=== PATIENT | male | born 1980 | race Caucasian/White ===

== ENCOUNTER 2017-08-14 08:49 | Observation (INO) | payer MEDICAID, SELFPAY ==
[2017-08-14] VITALS (12 sets, daily range): BP systolic 115–136; BP diastolic 64–94; PULSE 54–105; RESP 16–22; TEMP 36.3–36.6; O2SAT 97–100; BMI 22.8; BMI 22.5; BMI 22.6
--- NOTE | 2017-08-14 09:00 | CT_ITS ---
STUDY: CT ABDOMEN AND PELVIS WITHOUT CONTRAST REASON FOR EXAM: Male, 37 years old. Right upper quadrant pain RADIATION DOSAGE (If Supplied By Facility): CTDIvol = ( 6.58 ) mGy, DLP = ( 328.80 ) mGycm TECHNIQUE: Transaxial images were obtained from the dome of the diaphragm to the symphysis pubis without oral contrast, and without intravenous contrast. Sagittal and coronal images were reconstructed. Individualized dose optimization techniques were used for this CT. COMPARISON: None. FINDINGS: The visualized lung bases are unremarkable. The visualized portions of the heart are within normal limits. Normal liver. There is a solitary gallstone. There is thickening of the gallbladder zhao may represent cholecystitis Normal spleen. Normal pancreas. Normal bilateral adrenal glands. Normal right kidney. Normal left kidney. Normal visualized stomach. Normal small intestine. Normal colon. The appendix is visualized and appears normal. Normal abdominal aorta. Normal inferior vena cava. Normal retroperitoneum. Normal urinary bladder. Normal abdominal wall. Normal osseous structures. CT/Abdomen/Pelvis without Cont IMPRESSION: Cholelithiasis and possible acute cholecystitis. Electronically Signed: Geraldine Meade MD at 9:48 EDT Tel , Service support ,
--- NOTE | 2017-08-14 09:06 | ED.VISSUMM ---
- ER Visit Summary Date of Service: 08/14/17 Chief Complaint: Abdominal pain History of Present Illness: The patient is a 37 M with right upper quadrant abdominal pain. The pain started yesterday around 5 PM. It radiates over his entire right abdomen. Nothing seemed to bring this on or make it worse. Nothing seems to make it better. The pain does radiate to his right upper back. He is currently on disability after a shoulder surgery on the right with subsequent nerve damage. He has chronic pain in the right upper back, and this abdominal pain is making his chronic pain worse. He had some nausea and some dysuria, but no other real symptoms. Reports a history of kidney stones. Denies discharge or bleeding. Denies any history of gallbladder, liver, or pancreas disease. Denies any history of abdominal surgeries. He does smoke cigarettes and use marijuana. He takes oxycodone for chronic pain, and is in pain management. Physical Examination: Vital signs unremarkable. Afebrile. Patient appears very uncomfortable and is mildly agitated. Pacing. Abdomen is diffusely tender, more so on the right upper quadrant. No guarding or rebound. Patient has chronic skin changes to his right upper back, but otherwise is back is unremarkable. Test Results: We will check urinalysis, labs, and CT. Emergency Department Course and Treatment: He was treated with fluids, morphine, and Zofran while awaiting results. White count 13.2. Potassium 2.9. Hepatic panel and lipase normal. CT shows gallstones with suspected acute cholecystitis. Urinalysis pending. Given the patient's symptoms, CT findings, and elevated white count, I am concerned for cholecystitis. I spoke with the surgeon on-call, Dr. Barbosa. The patient was treated with Zosyn while awaiting consult. He will receive potassium after antibiotics. Dr. Barbosa saw the patient. He will be admitted. Plan is for surgery tomorrow. Treatment Plan: As above Disposition: Admission Impression: 1. Acute cholecystitis 2. Hypokalemia This note was generated with [employer] software. It may contain incorrect words, spelling, and punctuation that were not noted in review of the chart prior to signing ED Disposition - Plan for ED Patient: Chief Complaint: Flank Pain Referrals: [facility] Doctor,Out of [Primary Care Provider] -
--- NOTE | 2017-08-14 09:09 | ED.DCSUM_ITS ---
- ER Visit Summary Date of Service: 08/14/17 Chief Complaint: Abdominal pain History of Present Illness: The patient is a 37 M with right upper quadrant abdominal pain. The pain started yesterday around 5 PM. It radiates over his entire right abdomen. Nothing seemed to bring this on or make it worse. Nothing seems to make it better. The pain does radiate to his right upper back. He is currently on disability after a shoulder surgery on the right with subsequent nerve damage. He has chronic pain in the right upper back, and this abdominal pain is making his chronic pain worse. He had some nausea and some dysuria, but no other real symptoms. Reports a history of kidney stones. Denies discharge or bleeding. Denies any history of gallbladder, liver, or pancreas disease. Denies any history of abdominal surgeries. He does smoke cigarettes and use marijuana. He takes oxycodone for chronic pain, and is in pain management. Physical Examination: Vital signs unremarkable. Afebrile. Patient appears very uncomfortable and is mildly agitated. Pacing. Abdomen is diffusely tender , more so on the right upper quadrant. No guarding or rebound. Patient has chronic skin changes to his right upper back, but otherwise is back is unremarkable. Test Results: We will check urinalysis, labs, and CT. Emergency Department Course and Treatment: He was treated with fluids, morphine , and Zofran while awaiting results. White count 13.2. Potassium 2.9. Hepatic panel and lipase normal. CT shows gallstones with suspected acute cholecystitis. Urinalysis pending. Given the patient's symptoms, CT findings, and elevated white count, I am concerned for cholecystitis. I spoke with the surgeon on-call, Dr. Barbosa. The patient was treated with Zosyn while awaiting consult. He will receive potassium after antibiotics. Dr. Barbosa saw the patient. He will be admitted. Plan is for surgery tomorrow. Treatment Plan: As above Disposition: Admission Impression: 1. Acute cholecystitis 2. Hypokalemia This note was generated with [employer] software. It may contain incorrect words, spelling, and punctuation that were not noted in review of the chart prior to signing ED Disposition - Plan for ED Patient: Chief Complaint: Flank Pain Referrals: [facility] Doctor,Out of [Primary Care Provider] -
[2017-08-14] MEDS: Ondansetron 4 MG/2 ML Vial IV (09:17)
[2017-08-14] MEDS: 0.9% Normal Saline 1,000 ML 1000 ML IV (09:17)
[2017-08-14] MEDS: Morphine 4 MG/ML Syringe IV ×2 (09:17→16:16)
[2017-08-14 09:23] LABS: Absolute Lymphocyte Count 2.41 X10^3/ul (0.83-4.51); Absolute Neutrophil Count 9.1 X10^3/uL (2.0-7.7); Basophil% 0.8 % (0-1); Eosinophil# 0.38 X10^3/uL; Eosinophils% 2.9 % (0-5); Hematocrit 42.6 % (40-54); Hemoglobin 15.2 g/dl (13.0-16.5); Lymphocyte # 2.41 X10^3/ul (4.0); Lymphocyte % 18.3 % (19-41); Mean Corp Hgb Conc 35.7 g/gl (32-36); Mean Corpuscular Hgb 32.6 pg (27.0-32.0); Mean Corpuscular Volume 91.4 fL (80-94); Mean Platelet Vol. 10.1 fl (6.2-12.0); Monocyte# 1.16 X10^3/uL; Monocyte% 8.8 % (0-10); Neutrophil # 9.08 X10^3/uL (2.7-7.7); POSITIVE COUNT NO; POSITIVE DIFFERENTIAL NO; POSITIVE MORPHOLOGY NO; Platelet Count 349 K/mm3 (150-450); RBC Distribution Width CV 12.7 % (11.6-14.6); RBC Distribution Width SD 41.8 fl (35.1-43.9); Red Blood Count 4.66 M/mm3 (4.6-6.2); White Blood Count 13.2 K/mm3 (4.4-11.0)
[2017-08-14 09:40] LABS: ALB/GLOB Ratio 1.3 RATIO (0.9-2.4); AST(SGOT) 15 U/L (15-37); Alanine Aminotransfer ALT/SGPT 24 U/L (16-61); Albumin, Serum 4.4 g/dL (3.2-5.0); Alkaline Phosphatase 47 U/L (45-117); Anion Gap 9 (5-15); BUN 8 mg/dL (7-18); BUN/Creat Ratio 8.5 RATIO (10-20); Calcium,Total 9.1 mg/dL (8.5-10.1); Chloride 107 mmol/L (98-107); Creatinine, Serum 0.95 mg/dL (0.70-1.30); EST Glomerular Filtration Rate 95 mL/min (>60); Est Glom Filt Rate - Afr Amer 115 mL/min (>60); Estimated Creatinine Clearance 102.46 ml/min; Globulin 3.3 g/dL (2.2-4.2); Glucose 105 mg/dL (74-106); Lipase 118 U/L (73-393); Potassium 2.9 mmol/L (3.5-5.1); Protein, Total 7.7 g/dL (6.4-8.2); Sodium Level 141 mmol/L (136-145)
[2017-08-14 10:10] LABS: Mucous, Urine 0 SEEN /hpf (<or=2+); Squamous Epithelial Cells - UA 0 SEEN /hpf (0-5); White Blood Cells 0 SEEN /hpf (0-5)
[2017-08-14] MEDS: morphine 8 MG/ML Syringe IV (10:10)
[2017-08-14 10:12] LABS: Color, Urine Yellow (Yellow); Glucose, Dipstick Normal (Normal); Ketone-Dipstick Negative (Negative); Leukocyte Esterase-Dipstick Negative /ul (Negative); Nitrite-Dipstick Negative (Negative); Occult Blood-Urine 25 /ul (Negative); Protein-Dipstick Negative (Negative); Specific Gravity, Urine 1.015 (1.002-1.030); Urine Bilirubin Dipstick Negative (Negative); Urine Clarity Sl. Cloudy (Clear); Urine Urobilinogen Normal (Normal)
[2017-08-14 10:18] LABS: Amorphous Sediment 1+; Bacteria RARE /hpf (None Seen); Red Blood Cells-Urine 0-5 SEEN /hpf (0-5)
--- NOTE | 2017-08-14 10:24 | NURSING ---
MED SURG OBS CHOLECYSTITIS, CHOLELITHIASIS POLO
--- NOTE | 2017-08-14 10:28 | HP.PCM_ITS ---
History and Physical Date of Admission: 08/14/17 Chief Complaint: abdominal pain History of Present Illness: 37 y/o WM presents with sudden onset of abdominal pain since 5pm yesterday. Has had pain all night long Essentially generalized abdominal pain but with palpation, mostly centered in the right upper quadrant and epigastric area. CT scan was obtained which revealed cholelithiasis and thickened gallbladder wall. Patient has noted intermittant twinges of discomfort in the area for several months. Denies biliary obstructive symptoms. Past Medical History: chronic right shoulder pain on narcotics for the past 2 months Past Surgical History: Right shoulder surgery Past Injuries: denies head injuries, bilateral wrist fractures Medications: naproxen gabapentin oxycodone or hydrocodone Allergies: Has no known drug allergies Social history: TOB use 1ppd for 10 y ETOH use denies Denies IV drug use , lives with Review of Systems: General - denies fevers, not hungry Cardiovascular denies chest pain, denies history of heart attack Pulmonary had asthma in use but hasn't required inhaler for long time, denies shortness of breath, denies coughing up blood Gastrointestinal as per HPI, denies blood in stools Neurological denies numbness/weakness of extremities, denies seizures Genitourinary denies burning with urination, denies blood in urine Hematological denies spontaneous/prolonged bleeding Skin denies open non healing wounds Musculoskeletal has chronic right shoulder pain after surgery had nerve damage Endocrine denies diabetes Psychological denies hallucinations Physical examination: Vital signs Temp 98F RR 22 HR 102 BP 134/87 General WD/WN WM in no apparent distress, alert and oriented, not septic appearing HEENT Normocephalic. EOM intact with sclera clear and no icterus noted. Neck is supple with no jugular venous distention noted. Trachea is midline. Lungs clear to auscultation, normal breath sounds in all lung carey. No rales/rhonchi/wheezing noted. No labored breathing noted, such as retractions.. Heart normal S1 and S2 auscultated. No rubs/clicks/murmurs noted. Abdomen soft, but tender to palpation in the right upper quadrant and epigastrium with Santo's sign, also generalized abdominal tenderness, hypoactive bowel sounds Extremities no calf tenderness noted. No pitting edema noted. Genitourinary/Rectal deferred Skin normal skin integrity. Neurological gait normal, no focal deficits Psychological normal affect, patient is calm and appropriate Labs - WBC 13.2K, Hct 42.6, Plt 349K Impression: cholecystitis, cholelithiasis Discussion/Plan: I have discussed the above with the patient and his who is present with him. I have offered the patient the procedure of laparoscopic cholecystectomy, possible cholangiograms I have explained the procedure to them. I have counseled the patient as to the risks of the procedure, including but not limited to: infection, bleeding, injury to any blood vessels/nerves, scar tissue, injury to any intrabdominal organs, injury to kidney/ureters, injury to bowel/bladder, injury to the common bile duct/biliary tree, bile leakage, intraabdominal abscess/bleeding, hernias at incisional sites, wound infections, possible open procedure, complications of anesthesia, postoperative pneumonia/ cardiac problems/blood clots etc. the patient understands. The patient wishes to proceed. I have answered all questions to the patient?s satisfaction and the patient has no further questions.
--- NOTE | 2017-08-14 10:32 | NURSING ---
PATIENT GOING TO SURGERY PER DR POLO. 320 AFTER
--- NOTE | 2017-08-14 10:54 | NURSING ---
gave report to Uyen CROWELL in surgery. pt is prepped and ready to go down. pt was transported to surgery at 1053.
--- NOTE | 2017-08-14 11:30 | GALL_PTH ---
PATIENT: KATHLEEN DC LOC: MS3 U#:[id number] AGE/SX: 37/M ROOM: NC320 RE08/14/[address]: Dr. Cortney Barbosa MD : 1980 BED: 1 DIS: 08/14/2017 SPEC #: [id number] RECD: 08/17/17 14:31 STATUS: TADEO RETerri #: [id number] LUISA: 08/14/17 11:[address]: Cortney Barbosa DEPT: SURGICAL PATHOLOGY RECD BY: Kyle Prince ENTERED: 08/17/17 04:54 SP TYPE: IVANA LINDSEY DR: Out of [facility] Doctor Tissues: Gallbladder, NOS Procedures: Surgery Specimen Level III HEADER OPERATION: Laparoscopic cholecystectomy PRE-OP DIAGNOSIS: Cholecystitis TISSUE SUBMITTED: Gallbladder MICROSCOPIC DIAGNOSIS Gallbladder: Acute and chronic ulcerated cholecystitis and cholelithiasis. Reactive epithelial changes. SJ:ajay 08/17/17 MICROSCOPIC DESCRIPTION Slides are reviewed. GROSS DESCRIPTION Received is one container labeled with the patient's name and designated gallbladder. The specimen consists of a gallbladder in two pieces. The distal portion including fundus measures 7 cm in length and 2.5 cm in diameter. The serosal surface is congested. The proximal portion including cystic duct also and impacted stone measures 2 x 2 x 1.5 cm. A focal area of defect is also noted in the distal portion of the gallbladder. The stone in the proximal portion is yellowish-mulberry type and measures 1.5 x 1.5 x 1 cm. The mucosa is congested. The gallbladder also contains a small amount of rea-yellowish sludge-like material. The mucosa is congested and ulcerated. The gallbladder wall measures up to 0.3 cm in thickness. Professor Of Biological Sciences sections from the gallbladder and the cystic duct are submitted in one cassette. / ELISSA:ajay 08/14/17 TC:2 CPT: 16956
--- NOTE | 2017-08-14 11:58 | PCM.IMDPSTOP ---
Immediate Post-Op Note Date of Procedure: 08/14/17 Primary Surgeon/Physician: Cortney Barbosa communication studies professor: Shanita Quesada Pre-Operative Diagnosis: cholelithiasis, cholecystitis Post-Operative Diagnosis: cholecystitis with obstruction, cholelithiasis Surgery/Procedure Performed:: laparoscopic cholecystectomy Description of Surgical Findings:: wall thickening, cholecystitis - edematous wall, one large stone Estimated Blood Loss: < 20 ml Specimen's removed: gallbladder and contents Type of Anesthesia:: General ASA Class: ASA2 Mod Systematic Disease - Admit VTE Documentation VTE Present on Admission: Yes VTE Mechan Device Prophylaxis: SCD's
[2017-08-14] MEDS: Bupiv/Epi 0.5% Mpf 30 ML Vial (12:13)
--- NOTE | 2017-08-14 13:32 | PCM.OPRPT ---
Report of Operation Date of Procedure: 08/14/17 Pre-Operative Diagnosis: cholelithiasis, cholecystitis Post-Operative Diagnosis: cholecystitis with obstruction, cholelithiasis Surgery/Procedure Performed:: laparoscopic cholecystectomy Description of Surgical Findings:: wall thickening, cholecystitis - edematous wall, one large stone truck and transport mechanic: Shanita Quesada Type of Anesthesia:: General Anesthesiologist: Wily Aranda Specimen's removed: gallbladder and contents Estimated Blood Loss (mL): < 20 ml Fluids Replaced: 1000 ml RL Description of Procedure: After informed consent was given, the patient was brought to the Operating Room and placed in the supine position. Appropriate time out protocol was followed. The patient was then placed under general endotracheal anesthesia. The abdomen was then prepped with a sterile surgical skin preparation and sterile surgical drapes were placed. The ghassan-umbilical skin fold was grasped with penetrating clamps and the skin and subcutaneous tissues were infiltrated with 0.5% marcaine with epinephrine. A skin incision was then made with a 15 blade scalpel. The anterior abdominal wall was elevated and a Veress needle was carefully inserted into the intraabdominal cavity. It was checked to be in the proper position with a normal saline drop test. A CO2 pneumoperitoneum was then created. Once this was achieved, then the Veress needle was removed and an 11mm trocar was placed in its stead. A 10mm laparoscope was then inserted into the trocar and careful attention was directed to the intraabdominal contents. There was no evidence of injury to any intraabdominal organs from insertion of the Veress needle or the trocar. Under direct visualization, a 5mm subxiphoid trocar and two lateral 5mm right subcostal trocars were placed. The skin and subcutaneous tissues at these sites were infiltrated with 0.5% marcaine with epinephrine prior to placement of these trocars. Attention was then directed to the right upper quadrant of the abdomen. The gallbladder was grossly distended. Needle aspiration revealed hydrops. The gallbladder was then able to be grasped. Graspers were placed in the lateral trocars to grasp the distal aspect of the gallbladder and direct it cephalad and to grasp the gallbladder at Hartmans pouch and direct it laterally. Dissection then began on the proximal gallbladder continuing down to the area of the triangle of Calot to bluntly dissect out the cystic duct. The gallbladder wall was grossly edematous and thickened c/w cholecystitis. There also was pericholecystic fluid. The gallbladder was also enlarged due to distention. The neck of the gallbladder was identified and blunt dissection continued to dissect out a segment of the cystic duct. A clip was then placed on the neck of the gallbladder. Two clips were placed proximally and the cystic duct was then transected. The cystic artery was visualized and bluntly isolated and then two clips were placed proximally and one clip distally and then it was transected between the proximal and distal clips. The gallbladder was then from the liver bed using electrocautery and thus able to be brought out of the umbilical port via an Endobag. It was then forwarded to pathology for analysis. The liver bed was carefully examined. There was no evidence of bile leakage or bleeding. The cystic duct stump and cystic artery stump had their clips intact and there was no evidence of bile leakage or bleeding. The remainder of the abdomen was grossly normal. The CO2 was released and all trocars removed intact. The periumbilical fascia was approximated with a [id number] 0 vicryl suture. All skin incision were closed with 4-0 monocryl in a subdermal fashion. Cavilol and Steristrips were used to reinforce the skin closure. Sterile dressings were applied to all wounds. The patient was extubated and brought to the Recovery Room in stable condition. - Complications none noted - Admit VTE Documentation VTE Present on Admission: Yes VTE Mechan Device Prophylaxis: SCD's
[2017-08-14] MEDS: oxyCODONE 5 MG Tablet PO (17:48)
--- NOTE | 2017-08-14 18:44 | PCM.DC.GB ---
Discharge Diet: No Restrictions Discharge Activity: Return to Normal Activity, May not drive while taking narcotic pain medications. Lifting Restrictions: no lifting greater than 10 pounds for 2 weeks Call your doctor if your incision/area has: Continuous Slow Oozing, Increased Redness Additional Dressing/Incision Instructions:: Leave dressings in place. May get wet in shower. Do not soak - no tub baths/swimming Additional Instructions: If you become constipated, you can take over the counter laxatives. Drink plenty of fluids. Allergies/Adverse Reactions: Allergies No Known Allergies Allergy (Verified 08/14/17 08:52) Medications to take at Discharge Gabapentin [Neurontin] 600 mg PO TID 11/11/16 Oxycodone [Oxyir] 5 mg PO Q6H PRN PRN 7 Days #20 tab 08/14/17 The following prescriptions were given: Oxycodone [Oxyir] 5 mg PO Q6H PRN PRN 7 Days #20 tab PRN Reason: Severe Pain (6-10/10) Primary Care Physician: Cheryl Aggarwal,Out of [Primary Care Provider] - Please Follow Up With: Cortney Barbosa MD - call When: to be seen next week, please call for date and time, thank you
== END 2017-08-14 18:57 | disposition home or self-care (01) ==
LOC: ED 10:34 → SDC 10:42 → ACINP 10:46 → MS3 10:51 → SDC 10:51
PROVIDERS: Admitting Provider Surgery; Emergency Provider Emergency Medicine; Family Provider Internal Medicine; PCP Internal Medicine; Visit Provider Surgery
PROC: (CPT 47610; principal; 2017-08-14 11:10)
DX: K80.12 Calculus of gallbladder with acute and chronic cholecystitis without obstruction (principal); G89.29 Other chronic pain; E87.6 Hypokalemia; M25.511 Pain in right shoulder; F17.200 Nicotine dependence, unspecified, uncomplicated; Z87.442 Personal history of urinary calculi; Z79.899 Other long term (current) drug therapy
CPT/HCPCS: 00790; 47562; 74176; 80053; 81001; 83690; 85025; 88304; 96374; 96375; 96376; 99218; 99284; J7030; A4216; G0378; J2405

== ENCOUNTER 2019-11-29 00:06 | Emergency (ER) | payer MEDICAID, SELFPAY ==
[2019-11-29 00:08] VITALS: BP 105/66; PULSE 116; RESP 23; TEMP 36.6; O2SAT 99; BMI 24.5
--- NOTE | 2019-11-29 00:30 | ED.DCSUM_ITS ---
History of Present Illness Chief Complaint: Unresponsive Informant: Patient, Family Onset: Today Narrative: Patient presents after unresponsive episode. He has a history of chronic pain and takes oxycodone. Tonight he was at a friend's house and does not have his own oxycodone with him. A friend gave him 2 tablets of what he was told was oxycodone. He looked at the Internet to verify this stamping on the pill and was consistent with 10 mg tab of oxycodone. Patient states after he got home he took 1 tab and was working on his computer. His significant other came home and was speaking with him. She states that he was slurring his words, then became unresponsive and turned purple. She did CPR and gave him rescue breaths until EMS arrived. EMS did note the patient had a pulse. They started an IV and gave him 2 mg of Narcan. Patient became alert at that time. At this time patient has no complaints. - Past Medical History (1) Chronic shoulder pain Status: Chronic (2) Asthma Status: Chronic (3) Kidney stone Status: Resolved Past Medical History - Allergies and Home Meds Allergies/Adverse Reactions: Allergies No Known Allergies Allergy (Verified 11/29/19 00:12) Primary Care Physician: Bryan Delgadillo MD [Primary Care Provider] - Prior records reviewed: Yes Surgical History: no surgical history Lives: Spouse/ Significant Other Smoking Status: Current every day smoker Review of Systems General: Denies: Chills, Fever Eyes: Denies: Visual changes - bilaterally ENT: Denies: Bilateral ear pain Cardiovascular: Denies: Chest pain Respiratory: Denies: Dyspnea, Cough Gastrointestinal: Denies: Abdominal pain, Nausea, Vomiting, Diarrhea Genitourinary: Denies: Dysuria Musculoskeletal: Denies: Swelling, Extremity Pain Skin: Denies: Rash Hematologic: Denies: Easy bruising, Easy bleeding Allergy: Denies: Uticaria Physical Exam Vital Signs/Narrative: Vital Signs Temp Pulse Resp BP Pulse Ox 11/29/19 00:08 97.9 F 116 H 23 H 105/66 99 Inital Vital Signs reviewed: Yes General: Well nourished, Well developed Head: Normocephalic ENT: Moist mucous membranes Neck: Supple Cardiovascular: Regular rate, Regular rhythm Respiratory: No distress, CTA bilaterally Abdomen: Soft, Nontender Extremities: Nontender Skin: Normal color Neurological: Alert, Oriented x3 Psychological: Normal affect Diagnostic/Tx/Re-eval - Medical Decision Making She has been observed on satellite project site monitor. It is been an hour and a half since he was given Narcan. He remains alert and cooperative. He continues to deny any complaints. He will be discharged home with family who will be with him tonight. ED Disposition - Plan for ED Patient: Disposition: Home or Assisted Living Diagnosis: Narcotic overdose Instructions: ED Overdose Opiate Referrals: Bryan Delgadillo MD [Primary Care Provider] -
[2019-11-29] MEDS: 0.9% Normal Saline 1,000 ML 1000 ML IV (00:33)
[2019-11-29 01:07] VITALS: RESP 18; O2SAT 98
[2019-11-29 01:15] VITALS: BP 96/56; PULSE 78; RESP 17; O2SAT 99
== END 2019-11-29 01:17 | disposition home or self-care (01) ==
PROVIDERS: Emergency Provider Emergency Medicine; PCP Internal Medicine
DX: T40.601A Poisoning by unspecified narcotics, accidental (unintentional), initial encounter (principal); F17.200 Nicotine dependence, unspecified, uncomplicated; J45.909 Unspecified asthma, uncomplicated; Z79.891 Long term (current) use of opiate analgesic
CPT/HCPCS: 96360; 99285; A4216

== ENCOUNTER 2024-06-17 11:23 | Emergency (ER) | payer MEDICAID, SELFPAY ==
[2024-06-17 11:24] VITALS: BP 136/88; PULSE 62; RESP 16; TEMP 36.4; O2SAT 97; BMI 33.0
[2024-06-17 11:41] VITALS: O2SAT 98
[2024-06-17 13:17] VITALS: BP 117/98; PULSE 82; RESP 19; O2SAT 98
[2024-06-17 13:21] VITALS: PULSE 47; RESP 17
[2024-06-17] MEDS: Ipratropium/Albuterol Sulfate 3 ML AMPUL.NEB INHALATION (13:21)
--- NOTE | 2024-06-17 14:56 | EX.ED.VIS.UR ---
HPI HPI - URI History of Present Illness Chief Complaint: Shortness of Breath Informant: patient Narrative Narrative: Patient is a 43-year-old male with history of asthma presenting with 2 days of URI symptoms. He started with nasal congestion about 2 days ago. Last night he started have worsening cough and wheezing. Notes also associated sore throat. Denies any ear pain. Nuys any fever. No nausea or vomiting. Has had some sick contacts recently. States he had asthma and was younger but is not having problems since. Does use tobacco. Is not coughing anything up. Notes he does not have an inhaler at home. ROS ROS ED Constitutional Constitutional ED: Denies chills or fever(s) ENT ENT ED: Reports sore throat and other Details: Congestion ; Denies ear pain or rhinorrhea Cardiovascular Cardiovascular: Denies chest pain Respiratory/Chest Respiratory/Chest: Reports cough, dyspnea and other Details: Wheezing ; Denies sputum Gastrointestinal Gastrointestinal: Denies nausea or vomiting Musculoskeletal Musculoskeletal: Denies arthralgias or myalgias Neurologic Neurologic: Denies headache(s) or weakness PFSH PFSH Home Medications ?Medication ?Instructions ?Recorded ?Last Taken ?Type gabapentin 300 mg capsule 600 mg PO TID 11/11/16 Unknown History (Neurontin) oxycodone 5 mg tablet 5 mg PO Q6H PRN PRN Severe Pain 08/14/17 Unknown Rx () 7 days #20 tabs guaifenesin 600 mg tablet, 1,200 mg (2 x 600 mg) PO Q12H PRN 06/17/24 Unknown Rx extended release 12 hr (Mucinex) congestion #20 tabs prednisone 20 mg tablet 40 mg (2 x 20 mg) PO DAILY #8 tabs 06/17/24 Unknown Rx Allergy/AdvReac Type Severity Reaction Status Date / Time No Known Allergies Allergy Verified 06/17/24 11:26 Social History Smoking Status: Current every day smoker tobacco type: cigarettes and e-cigarettes EXAM Physical Exam Const Vital Signs: 06/17/24 11:24 06/17/24 11:41 06/17/24 13:17 Temperature 97.6 F L Temperature Source Oral Pulse Rate 62 82 Respiratory Rate 16 19 H Respiratory Pattern Blood Pressure 136/88 H 117/98 H Blood Pressure Mean 104 104 Pulse Ox 97 98 Oxygen Delivery Method Room Air Room Air Room Air 06/17/24 13:21 Temperature Temperature Source Pulse Rate 47 L Respiratory Rate 17 Respiratory Pattern Normal Blood Pressure Blood Pressure Mean Pulse Ox Oxygen Delivery Method Positive well nourished and well developed General Appearance ED: well developed and NAD HEENT Reports moist mucous membranes HEENT Narrative: Mildly injected oropharynx. Uvula is midline. Normal tonsils. Nasal congestion present. Eyes PERRL Neck supple and no JVD Resp normal respiratory effort Resp Narrative: Coarse breath sounds with expiratory wheezing present. No increased work of breathing. Auscultation: wheezes Cardio Rate: regular rate Rhythm: regular rhythm Extremity normal to inspection Extremity Narrative: No edema appreciated Neuro oriented x3 Sensorium / Orientation: alert Motor Exam: Negative for general weakness Psych mental status grossly normal Skin Rashes: no rashes MDM MDM MDM Narrative Medical decision making narrative: Patient is evaluated for 2 days of URI symptoms associated shortness of breath and wheezing. On exam patient is rhonchorous breath sounds with wheezing. Given a DuoNeb treatment with improvement of his breath sounds but he is not feeling much better. COVID flu and RSV swab are negative. Patient will be placed on a course of steroids and given an inhaler. Suspect this is viral/infectious. He does not have fever is only 2 days symptoms lower suspicion for influenza. I do not think a chest x-ray is indicated at this time. Is given return precautions. Discharged home stable condition. Discharge Plan Triage Chief Complaint: Shortness of Breath ED Provider: Jane Tello Dx/Rx/DC Orders Clinical Impression: Bronchitis, Acute viral syndrome Instructions: ED Bronchitis with Wheezing (Adult) Prescriptions: New prednisone 20 mg tablet 40 mg PO DAILY Qty: 8 0RF guaifenesin [Mucinex] 600 mg tablet extended release 12hr 1,200 mg PO Q12H PRN (Reason: congestion) Qty: 20 0RF No Action gabapentin [Neurontin] 300 MG capsule 600 mg PO TID oxycodone 5 MG tablet 5 mg PO Q6H PRN PRN (Reason: Severe Pain (6-10/10)) 7 Days Qty: 20 0RF Stand Alone Forms: ED Work / School Excuse Primary Care Provider: Care Physician,No Primary Referrals: Care Physician,No Primary [Primary Care Provider] - Susana Plascencia, SCHOOL BUS DRIVER/TEACHER ASSISTANT-C [[facility]] - 3-5 Days if not improving Activity Restrictions/Additional Instructions: use inhaler 1-2 puffs very 4-6 hours for cough and wheezing. Print Language: Faroese Disposition Disposition: Home, Self Care
[2024-06-17] MEDS: predniSONE 20 MG Tablet 60 MG PO (15:05)
[2024-06-17] MEDS: Albuterol Sulfate 8 gm Inhaler (60 puffs) 2 PUFF INHALATION (15:05)
[2024-06-17 15:10] VITALS: BP 121/78; PULSE 74; RESP 19; TEMP 36.8; O2SAT 97
== END 2024-06-17 15:25 | disposition home or self-care (01) ==
PROVIDERS: Emergency Provider Emergency Medicine; Visit Provider Emergency Medicine
DX: J40 Bronchitis, not specified as acute or chronic (principal); B34.9 Viral infection, unspecified; F17.210 Nicotine dependence, cigarettes, uncomplicated; Z79.52 Long term (current) use of systemic steroids; F17.290 Nicotine dependence, other tobacco product, uncomplicated
CPT/HCPCS: 87631; 94640; 99283; A4216

== ENCOUNTER 2024-12-04 22:11 | Emergency (ER) | payer MEDICAID, SELFPAY ==
[2024-12-04 22:13] VITALS: BP 129/84; PULSE 70; RESP 16; TEMP 36.7; O2SAT 99; BMI 30.4
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
--- OUTSIDE RECORDS SUMMARY | 2024-12-04 23:00 | XMS RPT_ITS | CCD ---
Author Organization [facility] Care Team Providers Care Jockey Room Custodian Name Role Phone Jane Tello Attending Unavailable Care Physician, No Primary Primary Care Unava ilable Problems Problem Classification Problem Date Documented Da te Episodic/Chronic Other lower respiratory disease (1 source) Shortness of breath; Translations: [Shortness of breath] Onset: 07-06-2024 Episodic Results Test Name Value Interpretation Reference Range Facil ity Emergency Department Summary on 06-17-2024 Emergency Department Summary [facility] Medical Records Department [address] [place] [id number] Emergency Department Summary 06/17/24 MR#: [id number] Acct: [id number] Name: KATHLEEN DC Rep #: [id number] : 1980 43 From: Jane Tello DO PCP: Care Physician,No Primary Status:DEP ER Location: ED HPI HPI - URI History of Present Illness Chief Complaint: Shortness of Breath Informant: patient Narrative Narrative: Patient is a 43-year-old male with history of asthma presenting with 2 days of URI symptoms. He started with nasal congestion about 2 days ago. Last night he started have worsening cough and wheezing. Notes also associated sore throat. Denies any ear pain. Nuys any fever. No nausea or vomiting. Has had some sick contacts recently. States he had asthma and was younger but is not having problems since. Does use tobacco. Is not coughing anything up. Notes he does not have an inhaler at home. ROS ROS ED Constitutional Constitutional ED: Denies chills or fever(s) ENT ENT ED: Reports sore throat and other Details: Congestion ; Denies ear pain or rhinorrhea Cardiovascular Cardiovascular: Denies chest pain Respiratory/Chest Respiratory/Chest: Reports cough, dyspnea and other Details: Wheezing ; Denies sputum Gastrointestinal Gastrointestinal: Denies nausea or vomiting Musculoskeletal Musculoskeletal: Denies arthralgias or myalgias Neurologic Neurologic: Denies headache(s) or weakness PFSH PFS Home Medications ???Medication ???Instructions ???Recorded ???Last Taken ???Type gabapentin 300 mg capsule 600 mg PO TID 11/11/16 Unknown History (Neurontin) oxycodone 5 mg tablet 5 mg PO Q6H PRN PRN Severe Pain 08/14/17 Unknown Rx () 7 days #20 tabs guaifenesin 600 mg tablet, 1,200 mg (2 x 600 mg) PO Q12H PRN 06/17/24 Unknown Rx extended release 12 hr (Mucinex) congestion #20 tabs prednisone 20 mg tablet 40 mg (2 x 20 mg) PO DAILY #8 tabs 06/17/24 Unknown Rx Allergy/AdvReac Type Severity Reaction Status Date / Time No Known Allergies Allergy Verified 06/17/24 11:26 Social History Smoking Status: Current every day smoker tobacco type: cigarettes and e-cigarettes EXAM Physical Exam Const Vital Signs: 06/17/24 11:24 06/17/24 11:41 06/17/24 13:17 Temperature 97.6 F L Temperature Source Oral Pulse Rate 62 82 Respiratory Rate 16 19 H Respiratory Pattern Blood Pressure 136/88 H 117/98 H Blood Pressure Mean 104 104 Pulse Ox 97 98 Oxygen Delivery Method Room Air Room Air Room Air 06/17/24 13:21 Temperature Temperature Source Pulse Rate 47 L Respiratory Rate 17 Respiratory Pattern Normal Blood Pressure Blood Pressure Mean Pulse Ox Oxygen Delivery Method Positive well nourished and well developed General Appearance ED: well developed and NAD HEENT Reports moist mucous membranes HEENT Narrative: Mildly injected oropharynx. Uvula is midline. Normal tonsils. Nasal congestion present. Eyes PERRL Neck supple and no JVD Resp normal respiratory effort Resp Narrative: Coarse breath sounds with expiratory wheezing present. No increased work of breathing. Auscultation: wheezes Cardio Rate: regular rate Rhythm: regular rhythm Extremity normal to inspection Extremity Narrative: No edema appreciated Neuro oriented x3 Sensorium / Orientation: alert Motor Exam: Negative for general weakness Psych mental status grossly normal Skin Rashes: no rashes MDM MDM MDM Narrative Medical decision making narrative: Patient is evaluated for 2 days of URI symptoms associated shortness of breath and wheezing. On exam patient is rhonchorous breath sounds with wheezing. Given a DuoNeb treatment with improvement of his breath sounds but he is not feeling much better. COVID flu and RSV swab are negative. Patient will be placed on a course of steroids and given an inhaler. Suspect this is viral/infectious. He does not have fever is only 2 days symptoms lower suspicion for influenza. I do not think a chest x-ray is indicated at this time. Is given return precautions. Discharged home stable condition. Discharge Plan Triage Chief Complaint: Shortness of Breath ED Provider: Jane Tello Dx/Rx/DC Orders Clinical Impression: Bronchitis, Acute viral syndrome Instructions: ED Bronchitis with Wheezing (Adult) Prescriptions: New prednisone 20 mg tablet 40 mg PO DAILY Qty: 8 0RF guaifenesin [Mucinex] 600 mg tablet extended release 12hr 1,200 mg PO Q12H PRN (Reason: congestion) Qty: 20 0RF No Action gabapentin [Neurontin] 300 MG capsule 600 mg PO TID oxycodone 5 MG tablet 5 mg PO Q6H PRN PRN (Reason: Severe Pain (6-10/10)) 7 Days Qty: 20 0RF Stand Alone Forms: ED Work / (more content not included)... Normal [facility] M100.678on 06-17-2024 M100.678 Pending SARS-CoV-2 (COVID 19) Negative INFLUENZA A Negative INFLUENZA B Negative RSV PCR Negative Normal [facility] Comment on above: Performed By: #### M 100.678 #### [facility] [address] [place], [address] EMERGENCY REPORTon [address] [facility] EMERGENCY ROOM REPORT NAME NUMBER SEX AGE ADMIT DISC TYPE MED.RECORD# KATHLEEN DC [id number] M 36 11/17/2016 11/17/2016 Leonel [id number] ROOM:ER DATE OF :1980 PHYSICIAN NO.:[id number] PHYSICIAN NAME: PHYSICIAN:Liv Hathaway DO ADDENDUM: CHIEF COMPLAINT: Patient is a 36-year-old male who is here for vomiting. DIAGNOSTIC DATA: The patient did have troponins and an EKG which, at this time, were completely unremarkable. The patient's EKG is unchanged from the previous EKG which did show sinus bradycardia. EMERGENCY DEPARTMENT COURSE AND TREATMENT: This is an addendum to the previous note. This is Dr. Hathaway who has taken over for Dr. Martínez. The patient, at this time, has received 25 mg of Phenergan as well as 25 mcg of fentanyl, given the patient's continued pain in his chest. The patient has not had any further episodes of emesis while in the ED, however has stated that he is very unhappy that we have not elected to admit the patient to the hospital. At this time, the patient's vital signs are normal and stable, he has had no further emesis for approximately 2 hours, and on reevaluation, was sleeping. The patient has stated that, on reevaluation, the only thing that improves the patient's symptoms are when he takes hot showers. The patient states that he does smoke marijuana on a daily basis, and the patient's intractable nausea and vomiting may be secondary to large intoxication of marijuana. I discussed this with the patient who stated, That could not be the diagnosis. You have to be wrong. Furthermore, I have explained to the patient that he may need an endoscopic procedure which does require a GI physician, which we do not currently have at our hospital. I have explained to the patient that followup with his GI doctor would be appropriate. PLAN/DISPOSITION: The patient states he does have an appointment with his GI doctor, and, at this time, given the fact the patient has normal stable vital signs, looks well, and has not had any further emesis that admission to the hospital would not be appropriate. The patient again stated that he is very unsatisfied with not being admitted, however states he is going to go home at this time. The patient's vital signs, again, were normal and stable. Patient is nontoxic appearing, ambulatory, and in no acute distress. D: Liv Hathaway DO TD: 11/17/2016 09:30:04 JOB #: [id number] LIV HATHAWAY DO EMERGENCY DEPARTMENT 11/24/16 08:57 Transcribed by: BRANDYN 11/17/2016 09:30:04 Copy for: MAG Hernandez DO Copy for: СВЕТЛАНА Bacon DO Copy for: NO DOCTOR ON ADMISSION SHEET EMERGENCY ROOM REPORT KATHLEEN DC Normal [facility] EMERGENCY REPORT [facility] EMERGENCY ROOM REPORT NAME NUMBER SEX AGE ADMIT DISC TYPE MED.RECORD# KATHLEEN DC [id number] M 36 11/17/2016 11/17/2016 E.R. [id number] ROOM:ER DATE OF :1980 PHYSICIAN NO.:[id number] PHYSICIAN NAME: PHYSICIAN:Liv Hathaway DO ADDENDUM The patient was discharged home with a prescription for Phenergan, as well as capsaicin cream. Patient was instructed to decrease the intake of marijuana and to continue to follow up with his GI doctor for possible endoscopic procedure. D: Liv Hathaway DO TD: 11/17/2016 10:41:10 JOB #: [id number] LIV HATHAWAY DO EMERGENCY DEPARTMENT 11/24/16 08:57 Transcribed by: BRANDYN 11/17/2016 10:41:10 Copy for: MAG Hernandez DO Copy for: СВЕТЛАНА Bacon DO Copy for: NO DOCTOR ON ADMISSION SHEET EMERGENCY ROOM REPORT KATHLEEN DC Normal [facility] Encounters Encounter Date Encounter Type Care Provider Facility Start: 06-17-2024 End: 06-17-2024 Emergency department patient visit [facility] Facility:[facility] Payers Date Payer Category Payer Self-pay 2024 Unknown [id number] Unknown [id number] Summary Purpose Family History No Family History Records FoundNo Family History Records Found Advance Directives No Advanced Directives Records FoundNo Advanced Directives Records Found Additional Source Comments (unrecognized sect ion and content) No Status Records FoundNo Status Records Found INFORMATION SOURCE (unrecogn ized section and content) DATE CREATED AUTHOR 11/18/[address] [facility] DATE CREATED AUTHOR AUTHOR'S RASHARD ATION 07/08/2024 [facility] FOR RECORDS PERTAINING TO PATIENTS WHO ARE OR HAVE BEEN ENROLLED IN A CHEMICAL DEPENDENCY/SUBSTANCEABUSE PROGRAM, SOME INFORMATION MAY BE OMITTED. This clinical summary was aggregated from multiple sources. Caution should be exercised in using it in the provision of clinical care. This summary normalizes information from multiple sources, and as a consequence, information in this document may materially change the coding, format and clinical context of patient data. In addition, data may be omitted in some cases. CLINICAL DECISIONS SHOULD BE BASED ON THE PRIMARY CLINICAL RECORDS. [email or web address]. provides no warranty or guarantee of the accuracy or completeness of information in this document.
--- NOTE | 2024-12-04 23:55 | RAD_ITS ---
PROCEDURE: WRIST 2 VIEWS 12/05/2024 REASON FOR EXAM: PAIN / ? SCAPHOID INJURY. NEED SCAPHOID VIEWS TECHNIQUE: WRIST 2 VIEWS COMPARISON: Same day FINDINGS: No definite acute scaphoid fracture. RAD/Wrist 2 Views IMPRESSION: No definite acute right wrist injury. Reading Location: [place] [address]
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
[2024-12-05 01:35] VITALS: BP 108/69; PULSE 62; RESP 12; TEMP 36.6; O2SAT 100
== END 2024-12-05 01:37 | disposition home or self-care (01) ==
PROVIDERS: Emergency Provider Emergency Medicine; Visit Provider Emergency Medicine
DX: S60.221A Contusion of right hand, initial encounter (principal); F17.290 Nicotine dependence, other tobacco product, uncomplicated; V86.05XA Driver of 3- or 4- wheeled all-terrain vehicle (ATV) injured in traffic accident, initial encounter
CPT/HCPCS: 73100; 73110; 99283